=== PATIENT | female | born 1935 | race Caucasian/White ===

== ENCOUNTER 2016-05-29 07:06 | Day surgery (SDC) | payer OTHER ==
[2016-05-29 07:51] VITALS: BMI 29.9
[2016-05-29] MEDS ORDERED: LIDOCAINE HCL/PF 2% SDV 5ML VIAL ONE (08:13)
[2016-05-29] MEDS ORDERED: PROPOFOL 20 ML ONE ×2 (08:13)
[2016-05-29 08:59] VITALS: TEMP 97.6
[2016-05-29 10:24] VITALS: BP 124/71; PULSE 61
--- NOTE | 2016-06-01 11:02 | PATH ---
Surgical Pathology Report Patient Name: LESLIE PERLA [facility]. Rec. #: [id number] /Age/Gender: 1935 (Age: 80) / F Account: [id number] Location: U-ENDOSCOPY Taken: 05/29/2016 Received: 05/29/2016 Reported: 06/01/2016 Physicians: Preeti Porter M.D. Specimen(s) Received A: BX RECTAL POLYP B: DISTAL TRANSVERSE COLON POLYP C: HEPATIC FLEXURE POLYP D: BX RIGHT COLON POLYP E: BX PROXIMAL TRANSVERSE COLON POLYP Clinical History Screening Colon polyps Final Diagnosis A. RECTUM, POLYP, BIOPSY: HYPERPLASTIC POLYP. B. COLON, DISTAL TRANSVERSE, POLYP, POLYPECTOMY: TUBULAR ADENOMA. C. COLON, HEPATIC FLEXURE, POLYP, POLYPECTOMY: TUBULAR ADENOMA. D. COLON, RIGHT, POLYP, BIOPSY: POLYPOID FRAGMENT OF COLONIC MUCOSA WITH PROMINENT REACTIVE LYMPHOID AGGREGATES AND FOCAL SURFACE HYPERPLASTIC CHANGE. E. COLON, PROXIMAL TRANSVERSE, POLYP, BIOPSY: TUBULAR ADENOMA. Electronically Signed Tomi Womack M.D. Gross Description A. Received in formalin, labeled "biopsy rectal polyp" are 2 looney, irregular portions of soft tissue averaging 0.2 cm in greatest dimension. The specimens are submitted in toto in one cassette. B. Received in formalin, labeled "distal transverse colon polyp" is a looney, irregular portion of soft tissue measuring 0.2 cm in greatest dimension. The specimen is submitted in toto in one cassette. C. Received in formalin, labeled "hepatic flexure polyp" are 2 looney, irregular portions of soft tissue measuring 0.1 and 0.3 cm in greatest dimension. The specimens are submitted in toto in one cassette. D. Received in formalin, labeled "right colon polyp" is a looney, irregular portion of soft tissue measuring 0.2 cm in greatest dimension. The specimen is submitted in toto in one cassette. E. Received in formalin, labeled "proximal transverse colon polyp" are 2 looney, irregular portions of soft tissue measuring 0.1 and 0.2 cm in greatest dimension. The specimens are submitted in toto in one cassette. 05/29/2016 saudi05/29/2016
== END 2016-05-29 10:25 | disposition home or self-care (01) ==
LOC: JASU-ENDO 07:06
PROVIDERS: ATTEND Internal Medicine Gastroenterology
PROC: 0DBE8ZX Excision of Large Intestine, Via Natural or Artificial Opening Endoscopic, Diagnostic (ICD-10-PCS; 2016-05-29)
PROC: 0DBP8ZX Excision of Rectum, Via Natural or Artificial Opening Endoscopic, Diagnostic (ICD-10-PCS; 2016-05-29)
PROC: 0DBL8ZX Excision of Transverse Colon, Via Natural or Artificial Opening Endoscopic, Diagnostic (ICD-10-PCS; principal; 2016-05-29 08:00)
DX: Z12.11 Encounter for screening for malignant neoplasm of colon (principal); K62.1 Rectal polyp; D12.3 Benign neoplasm of transverse colon; D12.2 Benign neoplasm of ascending colon; K63.5 Polyp of colon; K64.8 Other hemorrhoids
CPT/HCPCS: 88305-TC

== ENCOUNTER 2017-01-18 23:21 | Emergency (ER) | payer OTHER ==
--- NOTE | 2017-01-18 23:35 | PDOC ---
History of Present Illness - General History Source: Patient Exam Limitations: No Limitations - History of Present Illness Initial Comments: 01/19/17 00:01 The patient is a 81 year old female presenting with her family, with a significant past medical history of hypothyroidism, hypercholesterolemia, HTN, who presents to the emergency department with a headache since 8:30pm. She describes her headache as localized on the back of her head, constant in nature , without radiation or modifying factors. She states that she took a baby aspirin prior to presentation, with minimal to no relief. She notes that she was checking her blood pressure after the onset of the pain, which she noticed was mildly elevated, prompting her to come to the ED. Allergies: Codeine, sulfa Past surgical history: Right hip replacement Social history: No alcohol, tobacco or drug use reported <Herbert Covarrubias - Last Filed: 01/19/17 00:00> <Tejal Edwards - Last Filed: 01/19/17 02:07> - General Stated Complaint: HEAD PAIN Time Seen by Provider: 01/18/17 23:34 Past History <Herbert Covarrubias - Last Filed: 01/19/17 00:00> - Past Medical History Anemia: No Asthma: No Cancer: No Cardiac Disorders: No CVA: No COPD: No CHF: No Dementia: No Diabetes: No GI Disorders: Yes (ESOPHAGEAL SPASMS,) HTN: Yes Hypercholesterolemia: Yes Seizures: No Thyroid Disease: Yes (HYPOTHYROIDISM) - Surgical History Abdominal Surgery: No Appendectomy: No Cardiac Surgery: No Cholecystectomy: No Lung Surgery: No Neurologic Surgery: No Orthopedic Surgery: Yes (RIGHT HIP REPLACEMENT) - Suicide/Smoking/Psychosocial Hx Smoking Status: No Smoking History: Never smoked Have you smoked in the past 12 months: No Number of Cigarettes Smoked Daily: 0 Hx Alcohol Use: No Drug/Substance Use Hx: No Substance Use Type: None Hx Substance Use Treatment: No <Tejal Edwards - Last Filed: 01/19/17 02:07> - Past Medical History Allergies/Adverse Reactions: Allergies Allergy/AdvReac Type Severity Reaction Status Date / Time codeine Allergy Intermediate Nausea Verified 01/18/17 23:42 Sulfa (Sulfonamide Allergy Verified 01/18/17 23:42 Antibiotics) Home Medications: Ambulatory Orders Aspirin [ASA -] 81 mg PO DAILY 06/21/15 Atorvastatin Ca [Lipitor] 55 mg PO WEEKLY 06/21/15 Levothyroxine [Synthroid -] 112 mcg PO DAILY 06/21/15 Calcium Carbonate [Calcium] 500 mg PO BID 05/28/16 Cholecalciferol (Vitamin D3) [Vitamin D3] 1 cap PO DAILY 05/28/16 Cinnamon Bark [Cinnamon] 500 mg PO BID 05/28/16 Docusate Sodium [Stool Softener] 50 mg PO DAILY 05/28/16 Ginkgo Biloba 40 mg PO DAILY 05/28/16 Gluc Ramsay/Chondro Ramsay A/Vit C/Mn [Glucosamine Chondroitin Tab] 1 each PO BID L.acidoph,Paracasei, B.lactis [Probiotic] 1 each PO BID 05/28/16 Polyethylene Glycol 3350 [Miralax 119 gm Btl -] 17 gm PO ASDIR 05/28/16 Vitamin B Complex 1 each PO DAILY 05/28/16 Holy Basil 1 tab PO DAILY 05/29/16 L.acidoph,Paracasei, B.lactis [Probiotic] 1 each PO DAILY 05/29/16 Review of Systems - Review of Systems Able to Perform ROS?: Yes Comments:: 01/19/17 00:01 GENERAL/CONSTITUTIONAL: No fever or chills. No weakness. HEAD, EYES, EARS, NOSE AND THROAT: No change in vision. No ear pain or discharge. No sore throat.- CARDIOVASCULAR: No chest pain or shortness of breath RESPIRATORY: No cough, wheezing, or hemoptysis. GASTROINTESTINAL: No nausea, vomiting, diarrhea or constipation. GENITOURINARY: No dysuria, frequency, or change in urination. MUSCULOSKELETAL: No joint or muscle swelling or pain. No neck or back pain. SKIN: No rash NEUROLOGIC: (+) Headache. No vertigo, loss of consciousness, or change in strength/sensation. ENDOCRINE: No increased thirst. No abnormal weight change HEMATOLOGIC/LYMPHATIC: No anemia, easy bleeding, or history of blood clots. ALLERGIC/IMMUNOLOGIC: No hives or skin allergy. <Herbert Covarrubias - Last Filed: 01/19/17 00:00> *Physical Exam - Vital Signs Last Vital Signs Temp Pulse Resp BP Pulse Ox 98.2 F 77 14 175/85 97 01/18/17 23:42 01/18/17 23:42 01/18/17 23:42 01/18/17 23:42 01/18/17 23:42 - Physical Exam Comments: 01/19/17 00:01 GENERAL: Awake, alert, and fully oriented, in no acute distress HEAD: No signs of trauma, normocephalic, atraumatic EYES: PERRLA, EOMI, sclera anicteric, conjunctiva clear ENT: Auricles normal inspection, hearing grossly normal, nares patent, oropharynx clear without exudates. Moist mucosa NECK: Normal ROM, supple, no lymphadenopathy, JVD, or masses LUNGS: No distress, speaks full sentences, clear to auscultation bilaterally HEART: Regular rate and rhythm, normal S1 and S2, no murmurs, rubs or gallops, peripheral pulses normal and equal bilaterally. ABDOMEN: Soft, nontender, normoactive bowel sounds. No guarding, no rebound. No masses EXTREMITIES : Normal inspection, Normal range of motion, no edema. No clubbing or cyanosis. NEUROLOGICAL: Cranial nerves II through XII grossly intact. Normal speech, normal gait, no focal sensorimotor deficits SKIN: Warm, Dry, normal turgor, no rashes or lesions noted. <Herbert Covarrubias - Last Filed: 01/19/17 00:00> Medical Decision Making - Medical Decision Making 01/19/17 00:29 repeat [id number] 01/19/17 00:37 87-year-old female came into the hospital because she developed a headache about 8:30 this evening. It was in her occipital area. She denies any nausea, vomiting, visual changes, extremity weakness, confusion or slurred speech. Patient did not take any pain medicines per se. She. Prior to arrival she did take baby aspirin condition was concerned about a stroke. History significant for hypothyroidism Social medications include Synthroid and Lipitor CAT scan of the head impression is a normal exam. Ventricular system is midline and on nondilated - sulcal pattern is normal for patient's age. There is no bleed, no mass, no extra fluid collection and no mass effect. There is no skull fracture or skull lesion identified. Visualized paranasal sinuses and mastoid air cells are clear <Tejal Edwards - Last Filed: 01/19/17 02:07> *DC/Admit/Observation/Transfer - Attestations Scribe Attestion: 01/19/17 00:01 Documentation prepared by Herbert Covarrubias, acting as bilingual medical receptionist for Tejal Edwards MD <Herbert Covarrubias - Last Filed: 01/19/17 00:00> <Tejal Edwards - Last Filed: 01/19/17 02:07> Diagnosis at time of Disposition: Headache Qualifiers: Headache type: unspecified Headache chronicity pattern: acute headache Intractability: not intractable Qualified Code(s): R51 - Headache - Discharge Dispostion Disposition: HOME Condition at time of disposition: Stable - Referrals Referrals: Evita Kendall [Primary Care Provider] - - Patient Instructions Printed Discharge Instructions: DI for Headache Additional Instructions: Plesae take tylenol for pain If you have any recurrent or worsening symptoms,return immediately NIH Stroke Scale - Last Known Well Date/Time & Onset Date Last Known Well: 01/18/17 Time Last Known Well: 20:30 - Initial Evaluation Level of consciousness: Alert Ask patient the month and their age: Answers both correctly Ask patient to open & close eyes; make fist and let go: Obeys both correctly Best gaze (horizontal eye movement): Normal Visual field testing: No visual field loss Facial paresis (Show teeth/raise eyebrows/close eyes tight): Normal symmetrical movement Motor Function: Left Arm: Normal Motor Function: Right Arm: Normal (extends arm 90 (or 45) degrees for 10 seconds without drift Motor Function: Left Leg: Normal (extends leg 30 degrees for 5 seconds without drift) Motor Function: Right Leg: Normal (extends leg 30 degrees for 5 seconds without drift) Limb Ataxia: No ataxia Sensory(Use pinprick test arms,legs,trunk,face/side to side): Normal Best language (Describe picture, name items, read sentences): No Aphasia Dysarthria (read several words): Normal articulation Extinction and Inattention: No abnormality - Total Score NIH Stroke Scale Score: 0 <Tejal Edwards - Last Filed: 01/19/17 02:07>
[2017-01-18 23:44] VITALS: BP 175/85; PULSE 77; TEMP 98.2; BMI 27.0
[2017-01-19] MEDS ORDERED: ACETAMINOPHEN 500 MG TABLET (FP) PO ONE (00:56)
[2017-01-19] MEDS ORDERED: ACETAMINOPHEN 325 MG TABLET (FP) ONE (01:15)
== END 2017-01-19 02:12 | disposition home or self-care (01) ==
LOC: JER 23:21
DX: R51 Headache (principal); E03.9 Hypothyroidism, unspecified; E78.00 Pure hypercholesterolemia, unspecified
CPT/HCPCS: 70450-TC; 99281-25

== ENCOUNTER 2017-07-08 10:52 | Emergency (ER) | payer OTHER ==
--- NOTE | 2017-07-08 11:01 | PDOC ---
History of Present Illness - General Chief Complaint: Injury Stated Complaint: INJURY TO HEAD Time Seen by Provider: 07/08/17 11:01 History Source: Patient Exam Limitations: No Limitations - History of Present Illness Initial Comments: 07/08/17 12:03 Patient is an 81-year-old female past medical history of hypertension, coronary artery disease, hyperlipidemia, presents emergency department today complaining of headache. Patient states that she was unloading groceries yesterday in the rain when the trunk of her car came down and hit her on the head. Denies LOC, laceration, fall. She states that she went home and put ice on the head and took Tylenol. Since then she still has headache. She is concerned for possible concussion. Denies lightheadedness, dizziness, fevers, chills. Past History - Travel Traveled outside of the country in the last 30 days: No Close contact w/someone who was outside of country & ill: No - Past Medical History Allergies/Adverse Reactions: Allergies Allergy/AdvReac Type Severity Reaction Status Date / Time codeine Allergy Intermediate Nausea Verified 01/18/17 23:42 Sulfa (Sulfonamide Allergy Verified 01/18/17 23:42 Antibiotics) Home Medications: Ambulatory Orders Aspirin [ASA -] 81 mg PO DAILY 06/21/15 Atorvastatin Ca [Lipitor] 55 mg PO WEEKLY 06/21/15 Levothyroxine [Synthroid -] 112 mcg PO DAILY 06/21/15 Calcium Carbonate [Calcium] 500 mg PO BID 05/28/16 Cholecalciferol (Vitamin D3) [Vitamin D3] 1 cap PO DAILY 05/28/16 Cinnamon Bark [Cinnamon] 500 mg PO BID 05/28/16 Docusate Sodium [Stool Softener] 50 mg PO DAILY 05/28/16 Ginkgo Biloba 40 mg PO DAILY 05/28/16 Gluc Ramsay/Chondro Ramsay A/Vit C/Mn [Glucosamine Chondroitin Tab] 1 each PO BID L.acidoph,Paracasei, B.lactis [Probiotic] 1 each PO BID 05/28/16 Polyethylene Glycol 3350 [Miralax 119 gm Btl -] 17 gm PO ASDIR 05/28/16 Vitamin B Complex 1 each PO DAILY 05/28/16 Holy Basil 1 tab PO DAILY 05/29/16 L.acidoph,Paracasei, B.lactis [Probiotic] 1 each PO DAILY 05/29/16 Anemia: No Asthma: No Cancer: No Cardiac Disorders: No CVA: No COPD: No CHF: No Dementia: No Diabetes: No GI Disorders: Yes (ESOPHAGEAL SPASMS,) HTN: Yes Hypercholesterolemia: Yes Seizures: No Thyroid Disease: Yes (HYPOTHYROIDISM) - Surgical History Abdominal Surgery: No Appendectomy: No Cardiac Surgery: No Cholecystectomy: No Lung Surgery: No Neurologic Surgery: No Orthopedic Surgery: Yes (RIGHT HIP REPLACEMENT) - Suicide/Smoking/Psychosocial Hx Smoking Status: No Smoking History: Never smoked Have you smoked in the past 12 months: No Number of Cigarettes Smoked Daily: 0 Hx Alcohol Use: No Drug/Substance Use Hx: No Substance Use Type: None Hx Substance Use Treatment: No Review of Systems - Review of Systems Able to Perform ROS?: Yes Comments:: 07/08/17 12:07 CONSTITUTIONAL: Absent: fever, chills, diaphoresis, generalized weakness, malaise, loss of appetite HEENT: Absent: rhinorrhea, nasal congestion, throat pain, throat swelling, difficulty swallowing, mouth swelling, ear pain, eye pain, visual Changes CARDIOVASCULAR: Absent: chest pain, loss of consciousness, palpitations, irregular heart rate, peripheral edema RESPIRATORY: Absent: cough, shortness of breath, dyspnea with exertion, orthopnea, wheezing, stridor, hemoptysis GASTROINTESTINAL: Absent: abdominal pain, abdominal distension, nausea, vomiting, diarrhea, constipation, melena, hematochezia GENITOURINARY: Absent: dysuria, frequency, urgency, hesitancy, hematuria, flank pain, genital pain MUSCULOSKELETAL: Absent: myalgia, arthralgia, joint swelling SKIN: Absent: rash, itching, pallor HEMATOLOGIC/IMMUNOLOGIC: Absent: easy bleeding, easy bruising, lymphadenopathy, frequent infections ENDOCRINE: Absent: unexplained weight gain, unexplained weight loss, heat intolerance, cold intolerance NEUROLOGIC: Present: headache Absent: focal weakness or paresthesias, dizziness, unsteady gait, seizure, mental status changes, bladder or bowel incontinence PSYCHIATRIC: Absent: anxiety, depression, suicidal or homicidal ideation, hallucinations. Is the patient limited O[place]i proficient: No *Physical Exam - Physical Exam Comments: 07/08/17 12:07 GENERAL: Well developed, well nourished. Awake and alert. No acute distress. HEENT: Normocephalic, atraumatic. PERRLA, EOMI. No conjunctival pallor. Sclera are non- icteric. Moist mucous membranes. Oropharynx is clear. NECK: Supple. Full ROM. No JVD. Carotid pulses 2+ and symmetric, without bruits. No thyromegaly. No lymphadenopathy. CARDIOVASCULAR: Regular rate and rhythm. No murmurs, rubs, or gallops. Distal pulses are 2+ and symmetric. PULMONARY: No evidence of respiratory distress. Lungs clear to auscultation bilaterally. No wheezing, rales or rhonchi. ABDOMINAL: Soft. Non-tender. Non-distended. No rebound or guarding. No organomegaly. Normoactive bowel sounds. MUSCULOSKELETAL Normal range of motion at all joints. No bony deformities or tenderness. No CVA tenderness. EXTREMITIES: No cyanosis. No clubbing. No edema. No calf tenderness. SKIN: Warm and dry. Normal capillary refill. No rashes. No jaundice. NEUROLOGICAL: Alert, awake, appropriate. Cranial nerves 2-12 intact. No deficits to light touch and temperature in face, upper extremities and lower extremities. No motor deficits in the in face, upper extremities and lower extremities. Normoreflexic in the upper and lower extremities. Normal speech. Toes are down- going bilaterally. Gait is normal without ataxia. PSYCHIATRIC: Cooperative. Good eye contact. Appropriate mood and affect. Medical Decision Making - Medical Decision Making 07/08/17 11:18 Repeat blood pressure 154/78. Patient [id number] female who presents to the emergency department after hitting her head on her car trunk. Neuro exam is normal with no gross neurologic deficits. Patient ambulating around the emergency department without issue. Patient took 2 Tylenols at home prior to arrival in the emergency department. However still with headaches, will obtain head CT at this time to rule out bleed. 07/08/17 12:[address]: No significant interval change. Mild to moderate volume loss and probable mild chronic microvascular ischemic disease changes seen again. No gross acute intracranial pathology is identified. Correlate clinically determine further evaluation and follow-up. Head CT is negative at this time. Probable concussion. We'll give referral to neurology and have patient follow-up with her primary care doctor. Discussed findings with the patient. Return precautions given. Patient says all discharge instructions and all questions were answered. *DC/Admit/Observation/Transfer Diagnosis at time of Disposition: Concussion Qualifiers: Encounter type: initial encounter Loss of consciousness presence/duration: without LOC Qualified Code(s): S06.0X0A - Concussion without loss of consciousness, initial encounter - Discharge Dispostion Disposition: HOME Condition at time of disposition: Stable Decision to Admit order: No - Referrals Referrals: Evita Kendall [Primary Care Provider] - Hemal Yap MD [Staff Physician] - - Patient Instructions Printed Discharge Instructions: DI for Concussion Additional Instructions: Your head CT is negative today. You most likely have a concussion. Please follow-up with your primary care doctor this week. If you're still having symptoms of headache within a week, please follow-up with a neurologist. Referral has been provided for you. You may take Tylenol or Motrin as needed for headaches. Please follow the supervisor testing's instructions. Return to the emergency department if you have vomiting, worsening headache, lightheadedness, dizziness, or have any changes in your symptoms. - Post Discharge Activity
[2017-07-08 11:02] VITALS: BP 178/87; PULSE 73; TEMP 97.8; BMI 27.3
== END 2017-07-08 12:29 | disposition home or self-care (01) ==
LOC: JER 10:52
DX: S06.0X0A Concussion without loss of consciousness, initial encounter (principal); V03.09XA Pedestrian with other conveyance injured in collision with car, pick-up truck or van in nontraffic accident, initial encounter; Y92.414 Local residential or business street as the place of occurrence of the external cause; Y93.89 Activity, other specified; Y99.8 Other external cause status; I25.10 Atherosclerotic heart disease of native coronary artery without angina pectoris; I10 Essential (primary) hypertension; E78.5 Hyperlipidemia, unspecified; E78.00 Pure hypercholesterolemia, unspecified; Z96.641 Presence of right artificial hip joint
CPT/HCPCS: 70450-TC; 99282-25

== ENCOUNTER 2018-05-08 14:57 | Emergency (ER) | payer OTHER ==
[2018-05-08 15:08] VITALS: BP 151/71; PULSE 92; TEMP 98.5; BMI 26.4
--- NOTE | 2018-05-08 16:18 | PDOC ---
History of Present Illness - General Chief Complaint: Pain, Acute Stated Complaint: COLD LEG Time Seen by Provider: 05/08/18 15:55 - History of Present Illness Initial Comments: 05/08/18 16:18 82 yo F with h/o HTN, HLD, CAD who p/w left lower ext. temperature change. Patient reports acute onset of left lower leg cold and warm sensation at rest this AM, now resolved. Endorses BL LE varicosities and ongoing pain. Today patieint noted that left lower ext. larger than right. Denies recent trauma or surgery. Patient denies MCCLAIN, vision change, palpitations, cough, wheezing, orthopena, PND , leg swelling/pain, N/V, F,C, CP, SOB, urinary complaints, hematuria, BPR, abdominal pain, diarrhea, constipation, lightheadedness, weakness. PMHx: as noted above. Denies h/o PE/DVT. ROS: as noted SHx: Denies Etoh, IVDA. Allergies: NKDA Vascular Tod Moy Past History - Past Medical History Allergies/Adverse Reactions: Allergies Allergy/AdvReac Type Severity Reaction Status Date / Time codeine Allergy Intermediate Nausea Verified 05/08/18 15:05 Sulfa (Sulfonamide Allergy Verified 05/08/18 15:05 Antibiotics) Home Medications: Ambulatory Orders Aspirin [ASA -] 81 mg PO DAILY 06/21/15 Atorvastatin Ca [Lipitor] 55 mg PO WEEKLY 06/21/15 Levothyroxine [Synthroid -] 112 mcg PO DAILY 06/21/15 Calcium Carbonate [Calcium] 500 mg PO BID 05/28/16 Cholecalciferol (Vitamin D3) [Vitamin D3] 1 cap PO DAILY 05/28/16 Cinnamon Bark [Cinnamon] 500 mg PO BID 05/28/16 Docusate Sodium [Stool Softener] 50 mg PO DAILY 05/28/16 Ginkgo Biloba 40 mg PO DAILY 05/28/16 Gluc Ramsay/Chondro Ramsay A/Vit C/Mn [Glucosamine Chondroitin Tab] 1 each PO BID L.acidoph,Paracasei, B.lactis [Probiotic] 1 each PO BID 05/28/16 Polyethylene Glycol 3350 [Miralax 119 gm Btl -] 17 gm PO ASDIR 05/28/16 Vitamin B Complex 1 each PO DAILY 05/28/16 Holy Basil 1 tab PO DAILY 05/29/16 L.acidoph,Paracasei, B.lactis [Probiotic] 1 each PO DAILY 05/29/16 Anemia: No Asthma: No Cancer: No Cardiac Disorders: No CVA: No COPD: No CHF: No Dementia: No Diabetes: No GI Disorders: Yes (ESOPHAGEAL SPASMS,) HTN: Yes Hypercholesterolemia: Yes Seizures: No Thyroid Disease: Yes (HYPOTHYROIDISM) - Surgical History Abdominal Surgery: No Appendectomy: No Cardiac Surgery: No Cholecystectomy: No Lung Surgery: No Neurologic Surgery: No Orthopedic Surgery: Yes (RIGHT HIP REPLACEMENT) - Suicide/Smoking/Psychosocial Hx Smoking Status: No Smoking History: Never smoked Have you smoked in the past 12 months: No Number of Cigarettes Smoked Daily: 0 Hx Alcohol Use: No Drug/Substance Use Hx: No Substance Use Type: None Hx Substance Use Treatment: No Review of Systems - Review of Systems Comments:: 05/08/18 16:20 GENERAL/CONSTITUTIONAL: No fever or chills. No weakness. HEAD, EYES, EARS, NOSE AND THROAT: No change in vision. No ear pain or discharge. No sore throat. CARDIOVASCULAR: No chest pain or shortness of breath RESPIRATORY: No cough, wheezing, or hemoptysis. GASTROINTESTINAL: No nausea, vomiting, diarrhea or constipation. GENITOURINARY: No dysuria, frequency, or change in urination. MUSCULOSKELETAL: + LLE temp change. No joint or muscle swelling or pain. No neck or back pain. SKIN: No rash NEUROLOGIC: No headache, vertigo, loss of consciousness, or change in strength. ENDOCRINE: No increased thirst. No abnormal weight change HEMATOLOGIC/LYMPHATIC: No anemia, easy bleeding, or history of blood clots. ALLERGIC/IMMUNOLOGIC: No hives or skin allergy. *Physical Exam - Vital Signs Last Vital Signs Temp Pulse Resp BP Pulse Ox 98.5 F 92 H 18 151/71 95 05/08/18 15:06 05/08/18 15:06 05/08/18 15:06 05/08/18 15:06 05/08/18 15:06 - Physical Exam Comments: 05/08/18 16:20 GENERAL: Awake, alert, and fully oriented, in no acute distress HEAD: No signs of trauma, normocephalic, atraumatic EYES: PERRLA, EOMI, sclera anicteric, conjunctiva clear ENT: Auricles normal inspection, hearing grossly normal, nares patent, oropharynx clear without exudates. Moist mucosa NECK: Normal ROM, supple, no lymphadenopathy, JVD, or masses LUNGS: No distress, speaks full sentences, clear to auscultation bilaterally HEART: Regular rate and rhythm, normal S1 and S2, no murmurs, rubs or gallops, peripheral pulses normal and equal bilaterally. ABDOMEN: Soft, nontender, normoactive bowel sounds. No guarding, no rebound. No masses EXTREMITIES : L>R circumferential edema. BL varicsoities. Palpable and symmetric DP/PT pulses. Normal inspection, Normal range of motion, No clubbing or cyanosis. Neg Homans. NEUROLOGICAL: Cranial nerves II through XII grossly intact. Normal speech, normal gait, no focal sensorimotor deficits SKIN: Warm, Dry, normal turgor, no rashes or lesions noted Moderate Sedation - Procedure Monitoring Vital Signs: Procedure Monitoring Vital Signs Temperature 98.5 F 05/08/18 15:06 Pulse Rate 92 H 05/08/18 15:06 Respiratory Rate 18 05/08/18 15:06 Blood Pressure 151/71 05/08/18 15:06 O2 Sat by Pulse Oximetry (%) 95 05/08/18 15:06 ED Treatment Course - RADIOLOGY Radiology Studies Ordered: Category Date Time Status DUPLEX VASCUL US-2LEGS [US] Stat Ultrasound 05/08/18 16:05 Ordered Medical Decision Making - Medical Decision Making 05/08/18 16:20 82 yo F with h/o HTN, HLD, CAD who p/w left lower ext. temperature change ( cold and warm) at rest this AM. Vitals wnl, AF, A&Ox3. L>R circumferential edema. BL varicsoities. Palpable and symmetric DP/PT pulses. R/o DVT. BL LE neurovascularly intact. Low suspicion of acute arterial ischemia. No evidence of gangrene, necorsis, or phlegmasia. Ed Course: Patient advised to f/u with vascular. 05/08/18 16:53 DUPLEX: No evidence of DVT 05/08/18 22:51 Pt stable for d/c with return precautions. *DC/Admit/Observation/Transfer Diagnosis at time of Disposition: Sensation of change in temperature - Discharge Dispostion Disposition: HOME Condition at time of disposition: Stable Decision to Admit order: No - Referrals Referrals: Evita Kendall [Primary Care Provider] - - Patient Instructions Printed Discharge Instructions: DI for Leg Pain Additional Instructions: Please return to the emergency department with any new or worsening symptoms or concerns. Please follow up with your primary care physician within 72 hours. Please follow up with Tod Winter within 1 week. - Post Discharge Activity - Attestations Physician Attestion: 05/08/18 16:23 I attest to the information provided in this note.
--- NOTE | 2018-05-08 17:02 | PDOC ---
Attending Attestation - HPI HPI: 05/08/18 17:22 The patient is a 82 year old female, with a significant past medical history of hypothyroidism, hypercholesterolemia, HTN, and CAD, who presents to the emergency department with, LLE temperature fluctuation between warmth and cold lasting a few minutes. She denies any new leg pain with ambulation. She denies any history of neuropathy. She denies recent fevers, chills, headache or dizziness. She denies recent nausea, vomit, diarrhea or constipation. She denies recent dysuria, frequency, urgency or hematuria. She denies recent chest pain or shortness of breath. Allergies: Codeine, sulfa. Past surgical history: Right hip replacement Social history: Nonsmoker. Denies EtOH use and recreational drug use. Primary Care Physician: Dr. Evita Kendall Vascular: Dr. Tod Winter <Reno Franco - Last Filed: 05/08/18 17:22> - Resident Resident Name: Justin Foster - ED Attending Attestation I have performed the following: I have examined & evaluated the patient, The case was reviewed & discussed with the resident, I agree w/resident's findings & plan, Exceptions are as noted - Physicial Exam PE: 05/08/18 18:31 see above - Medical Decision Making 05/08/18 16:56 any para 82y F hx of htn, hl, cad, varicose veins, presents with cold and warm sensation on the L leg this morning lasting for a few minutes, without any parasthesias or pain endorses some swelling in the leg. cold/warmth have since resolved. no assocated other sypmtoms including cough, sob, cp, palpitations, n/v, intermittent claudication. on exam the pt has neg homans, normal symmetric pulses onher dp bilaterally, symmetric warmth, symmetric color, normal cap refill of both legs. hercardiac exam showed NSR duplex neg for dvt ekg pending to screen for afib 05/08/18 18:31 no signs of afib on ekg will dc with pmd fu return precautions were discussed <Arthur Bartlett - Last Filed: 05/08/18 18:31> Heart Score/ECG Review - ECG Impressions Comment:: 05/08/18 18:30 Twelve-lead EKG was performed and reviewed by me. There is normal sinus rhythm with a normal rate. rate of 76 The axis is normal. The intervals are normal. There is normal R wave progression There are no ST or T wave abnormalities. Impression: Normal twelve-lead EKG <Arthur Bartlett - Last Filed: 05/08/18 18:31> Attestations - Attestations 05/08/18 17:22 Documentation prepared by Reno Franco, acting as certified medical transcriptionist for Arthur Bartlett MD. <Reno Franco - Last Filed: 05/08/18 17:22>
--- NOTE | 2018-05-09 22:49 | EKG ---
Test Reason : Blood Pressure : / mmHG Vent. Rate : 076 BPM Atrial Rate : 076 BPM P-R Int : 180 ms QRS Dur : 082 ms QT Int : 396 ms P-R-T Axes : 029 020 023 degrees QTc Int : 445 ms NORMAL SINUS RHYTHM NORMAL ECG WHEN COMPARED WITH ECG OF 18-DEC-2012 18:55, PREMATURE VENTRICULAR COMPLEXES ARE NO LONGER PRESENT T WAVE VARIATION Confirmed by SYLVIA OSMAN MD ([id number]) on 05/09/2018 10:49:17 PM Referred By: Confirmed By:SYLVIA OSMAN MD
== END 2018-05-08 18:01 | disposition home or self-care (01) ==
LOC: JER 14:57
DX: I83.893 Varicose veins of bilateral lower extremities with other complications (principal); I25.10 Atherosclerotic heart disease of native coronary artery without angina pectoris; I10 Essential (primary) hypertension; E78.00 Pure hypercholesterolemia, unspecified; E03.9 Hypothyroidism, unspecified
CPT/HCPCS: 93005; 93010; 93970-TC; 99282-25

== ENCOUNTER 2020-07-25 17:50 | Emergency (ER) | payer OTHER ==
[2020-07-25] MEDS ORDERED: ACETAMINOPHEN 325 MG TABLET (FP) PO ONE (17:58)
[2020-07-25] MEDS ORDERED: ACETAMINOPHEN 325 MG TABLET (FP) ONE (18:08)
[2020-07-25 18:31] VITALS: BP 184/83; PULSE 67; TEMP 98.3; BMI 27.3
== END 2020-07-25 18:51 | disposition home or self-care (01) ==
LOC: FER 17:50
DX: S09.90XA Unspecified injury of head, initial encounter (principal)
CPT/HCPCS: 70450-TC; 99284-25

== ENCOUNTER 2021-01-16 16:17 | Emergency (ER) | payer OTHER ==
[2021-01-16 16:28] VITALS: BP 186/77; PULSE 66; TEMP 98.1; BMI 30.2
[2021-01-16] MEDS ORDERED: DIPHTH,PERTUSS(ACELL),TET 0.5 ML DISP.SYRIN IM ONE ×2 (16:45→17:11)
== END 2021-01-16 17:44 | disposition home or self-care (01) ==
LOC: FER 16:17
DX: S81.851A Open bite, right lower leg, initial encounter (principal); W54.0XXA Bitten by dog, initial encounter
CPT/HCPCS: 90715; 99283-25

== ENCOUNTER 2022-05-16 08:24 | Emergency (ER) | payer OTHER ==
[2022-05-16 08:33] VITALS: BP 178/79; PULSE 67; RESP 20; TEMP 98.2; BMI 30.3
[2022-05-16] MEDS ORDERED: ACETAMINOPHEN 325 MG TABLET (FP) PO ONE (09:47)
[2022-05-16] MEDS ORDERED: ACETAMINOPHEN 325 MG TABLET (FP) ONE (10:02)
[2022-05-16 10:12] LABS: HEMATOCRIT 43.5 % (32.4-45.2); HEMOGLOBIN 14.6 G/dL (10.7-15.3); MCH 31.2 pg (25.7-33.7); MCHC 33.6 g/dl (32.0-36.0); MEAN CELL VOLUME 92.9 fl (80-96); MEAN PLT VOLUME 7.8 fl (7.5-11.1); PLATELET COUNT 193.8 10^3/uL (134-434); RBC 4.68 10^6/uL (3.60-5.2); RDW 14.5 % (11.6-15.6); WHITE BLOOD COUNT 7.1 10^3/uL (4.0-10.8)
[2022-05-16 10:13] LABS: BILIRUBIN,TOTAL 0.6 mg/dl (0.2-1); CALCIUM 9.6 mg/dl (8.5-10); CREATININE 0.7 mg/dl (0.55-1.3)
[2022-05-16 10:31] LABS: EPITHELIAL CELLS FEW /hpf
[2022-05-16 11:12] LABS: PLATELET ESTIMATE ADEQUATE
== END 2022-05-16 13:23 | disposition home or self-care (01) ==
LOC: FER 08:24
DX: G44.209 Tension-type headache, unspecified, not intractable (principal); R42 Dizziness and giddiness
CPT/HCPCS: 36415; 70450-TC; 80053; 81003; 81015; 84484; 85027; 93005; 99285-25

== ENCOUNTER 2022-12-06 12:59 | Emergency (ER) | payer OTHER ==
[2022-12-06] MEDS ORDERED: ACETAMINOPHEN 325 MG TABLET (FP) PO ONE (13:05)
[2022-12-06] MEDS ORDERED: ACETAMINOPHEN 325 MG TABLET (FP) ONE (13:11)
[2022-12-06 13:16] VITALS: PULSE 66; RESP 18; TEMP 97.9; BMI 29.2
[2022-12-06 13:32] VITALS: BP 173/68
== END 2022-12-06 13:54 | disposition home or self-care (01) ==
LOC: FER 12:59
DX: I10 Essential (primary) hypertension (principal); R68.84 Jaw pain; R51.9 Headache, unspecified
CPT/HCPCS: 99283-25

== ENCOUNTER 2023-02-07 11:33 | Emergency (ER) | payer OTHER ==
[2023-02-07 11:46] VITALS: BP 188/92; PULSE 68; RESP 16; TEMP 98.9; BMI 29.2
[2023-02-07 12:09] LABS: HEMATOCRIT 41.7 % (32.4-45.2); HEMOGLOBIN 13.6 G/dL (10.7-15.3); MCH 30.6 pg (25.7-33.7); MCHC 32.6 g/dl (32.0-36.0); MEAN CELL VOLUME 93.8 fl (80-96); PLATELET COUNT 173.4 10^3/uL (134-434); RBC 4.45 10^6/uL (3.60-5.2); RDW 14.7 % (11.6-15.6); WHITE BLOOD COUNT 5.9 10^3/uL (4.0-10.8)
[2023-02-07 13:50] LABS: ALBUMIN 4.2 g/dl (3.4-5.0); BILIRUBIN,TOTAL 0.5 mg/dl (0.2-1); CALCIUM 9.7 mg/dl (8.5-10.1); CREATININE 0.6 mg/dl (0.6-1.3); TOT PROT 6.3 g/dl (6.4-8.2)
[2023-02-07] MEDS ORDERED: MAG HYDROX/AL HYDROX/SIMETH 30 ML UNIT-DOSE CUP ONE (14:51)
[2023-02-07] MEDS ORDERED: MAG HYDROX/AL HYDROX/SIMETH -MYLANTA- ORAL SUSPENSION PO ONE (14:51)
[2023-02-07 18:18] LABS: PLATELET ESTIMATE ADEQUATE
== END 2023-02-07 16:41 | disposition left against medical advice (07) ==
LOC: FER 11:33
DX: R07.89 Other chest pain (principal); M54.6 Pain in thoracic spine
CPT/HCPCS: 36415; 71045-TC-FY; 80053; 84484; 85027; 93005; 99285-25

== ENCOUNTER 2023-06-11 15:19 | Emergency (ER) | payer OTHER ==
[2023-06-11 15:41] VITALS: BP 157/83; PULSE 63; RESP 20; TEMP 98.2; BMI 29.2
[2023-06-11] MEDS ORDERED: KETOROLAC TROMETHAMINE 30 MG/1 ML VIAL ONE (15:55)
[2023-06-11] MEDS: KETOROLAC TROMETHAMINE 30 MG/1 ML VIAL IM ONE (16:03)
== END 2023-06-11 16:47 | disposition home or self-care (01) ==
LOC: FER 15:19
PROC: 3E0233Z Introduction of Anti-inflammatory into Muscle, Percutaneous Approach (ICD-10-PCS; principal; 2023-06-11)
DX: S83.412A Sprain of medial collateral ligament of left knee, initial encounter (principal); M25.562 Pain in left knee; X50.1XXA Overexertion from prolonged static or awkward postures, initial encounter
CPT/HCPCS: 73562-TC-LT-FY; 99284-25

== ENCOUNTER 2023-09-21 08:45 | Emergency (ER) | payer OTHER ==
[2023-09-21 09:04] VITALS: BP 155/76; PULSE 80; RESP 20; TEMP 982; BMI 29.2
== END 2023-09-21 09:50 | disposition home or self-care (01) ==
LOC: FER 08:45
DX: S51.811A Laceration without foreign body of right forearm, initial encounter (principal); W10.9XXA Fall (on) (from) unspecified stairs and steps, initial encounter
CPT/HCPCS: 99283-25

== ENCOUNTER 2024-01-28 04:16 | Day surgery (SDC) | payer OTHER ==
[2024-01-24 09:03] VITALS: BMI 29.2
[~2024-01-28 04:16] MED LIST: ACETAMINOPHEN 500 MG TABLET (FP) PO PRN
[2024-01-28] MEDS ORDERED: TRIAMCINOLONE ACET 40MG/1ML VIAL ONE (07:32)
[2024-01-28] MEDS ORDERED: BUPIVACAINE HCL/PF 0.75% 10 ML VIAL ONE (07:34)
[2024-01-28] MEDS ORDERED: LIDOCAINE HCL/PF 1% SDV 5ML VIAL ONE (07:34)
[2024-01-28] MEDS ORDERED: BUPIVACAINE HCL/PF 0.5% (5MG/ML) 10 ML VIAL ONE (07:34)
[2024-01-28] MEDS: BUPIVACAINE HCL/PF 0.5% (5MG/ML) 10 ML VIAL IJ ONE ×3 (11:09)
[2024-01-28] MEDS: LIDOCAINE HCL 1% PRESERVATIVE FREE - 30ML VIAL IJ ONE ×2 (11:09)
[2024-01-28] MEDS: IOHEXOL 180 MG/1 ML ML IJ ONE ×2 (11:10)
[2024-01-28] MEDS: TRIAMCINOLONE ACET 40MG/1ML VIAL IM ONE ×2 (11:10)
[2024-01-28 11:29] VITALS: RESP 18
[2024-01-28 12:12] VITALS: BP 149/68; PULSE 66; TEMP 97.1
== END 2024-01-28 12:05 | disposition home or self-care (01) ==
LOC: JASU-SURG 04:16
PROVIDERS: ATTEND Pain Medicine Pain Medicine
PROC: 3E0U3BZ Introduction of Anesthetic Agent into Joints, Percutaneous Approach (ICD-10-PCS; 2024-01-28)
PROC: 3E0U33Z Introduction of Anti-inflammatory into Joints, Percutaneous Approach (ICD-10-PCS; principal; 2024-01-28 11:00)
DX: M16.12 Unilateral primary osteoarthritis, left hip (principal)
CPT/HCPCS: 76000-TC-FY